=== PATIENT | male | born 1965 | race Caucasian/White ===

== ENCOUNTER 2025-07-11 10:47 | Day surgery (SDC) | payer OTHER ==
[2025-07-11] MEDS: Lactated Ringers 1,000 ML IV SCH (11:14)
[2025-07-11] MEDS ORDERED: propofoL 500 MG/50 ML 50 ML ONE (11:47)
[2025-07-11] MEDS ORDERED: Lactated Ringers 1,000 ML IV SCH (12:45)
[2025-07-11 14:38] VITALS: BP 133/78; PULSE 68
== END 2025-07-11 13:05 | disposition home or self-care (01) ==
LOC: MW.SDS 10:47
PROVIDERS: ATTEND Surgery
DX: Z12.11 Encounter for screening for malignant neoplasm of colon (principal); K57.30 Diverticulosis of large intestine without perforation or abscess without bleeding; I10 Essential (primary) hypertension; E66.01 Morbid (severe) obesity due to excess calories; Z68.41 Body mass index [BMI] 40.0-44.9, adult; Z79.899 Other long term (current) drug therapy
CPT/HCPCS: 45378; J2003; J2704; J7120; 00812